=== PATIENT | female | born 1980 | race Caucasian/White ===

== ENCOUNTER → 2024-06-28 | Outpatient (CLI) | payer SELFPAY ==
--- NOTE | 2024-06-28 | IMM_PTH ---
PATIENT: RONNI VALERIO LOC: [facility] U#:[id number] AGE/SX: 43/F ROOM: RE06/28/[address]: Dr. Lexie Evans MD : 1980 BED: DIS: 06/28/2024 SPEC #: [id number] RECD: 07/02/24 10:16 STATUS: BASILIA REQ #: [id number] DEBORAH: 06/28/24 00:[address]: Lexie Evans DEPT: IMMUNOHISTOCHEMISTRY RECD BY: Berto Floyd ENTERED: 07/02/24 10:17 SP TYPE: IMMUNO OTHR DR: Dr. Gm Zimmer, Tissues: A - Left breast, NOS B - Axillary lymph node, NOS Procedures: E-CAD (initial) CALPONIN-1 (add) CK5-6 (add) CK8 (add) E-CAD (add) HER2 JERRY (add) KI-67 (add) MAMM (add) P53 (add) TX (add) Pankeratin (initial) GATA3 (add) P40 (add) ER (initial) PHYSICIAN & [address] [address] SPECIMEN INFORMATION: Tissue Source: A- Left breast mass, B- Left axillary lymph node Clinical Info: Left breast mass Specimen Number: [id number] A, B CPT code: 33798y3,35536j67,21734o4 METHODOLOGY: Deparaffinized sections of prefer/formalin-fixed tissue or PAP/DQ stained slides are incubated with monoclonal/polyclonal antibodies/oligonucleotide probes. Localization is made via biotin free immunoperoxidase method. Appropriate controls are performed and reacted as expected. Results on target cell population are indicated in the following table: RESULTS: ANTIBODY / CLONE RESULT Block A E-Cad (ECH-6) positive CK8 (22rgjnL80) positive, focal Calponin-1 (QS363C) negative CK5-6 (D5 & 1684) positive P40 (BC28) positive P53 (DO-7) negative (null pattern) Ki-67 (30-9) positive, high ~90% AE1-3 (AE1/AE3/PCK26) positive, focal MORPHOMETRIC ANALYSIS ER (clone 6F11) 0% TX (clone 16/1E2) 0% Her-2Neu (clone CB11) 0 The prognostic test for HER2 is performed on formalin-fixed paraffin embedded tissue. A 3+ (positive) staining pattern is defined as intense, homogeneous, complete, circumferential membranous staining in >10% of contiguous tumor cells. A similar weak (2+) staining pattern is interpreted as equivocal. KEENA follow-up testing is recommended for all equivocal cases. Positivity/negativity for ER/TX is reported if > or < 1% of the tumor cells are immuno- reactive, respectively. The ASCO/CAP criteria is used for scoring. Reference: Journal of Clinical Oncology, 2013; 31:3011-3973 & 2010; 16:2324-8599. Ischemic time: Less than one hour. Duration of fixation: __ Hrs; Sample Adequate: Yes. These assays have not been validated on decalcified tissues. Results should be interpreted with caution given the likelihood of false negativity on decalcified specimens or fixation greater than 72 hours. Alternative testing methods (FISH/dualISH for Her2; gene expression for ER) are recommended, if applicable. Please notify the laboratory if additional testing is required. Block B AE1-3 (AE1/AE3/PCK26) positive CK8 (40jufhY26) positive, weak E-Cad (ECH-6) positive Mammaglobin (31A5) negative GATA3 (L50-823) positive CK5-6 (D5 & 1684) positive P40 (BC28) negative These tests were developed and their performance characteristics determined by [facility]. They may not have been cleared or approved by the U.S. Food and Drug Administration. The FDA has determined that such clearance or approval is not necessary. The above immunohistochemical/dualISH markers are ordered and reviewed by the Pathologist. INTERPRETATION: A. 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 Negative for estrogen receptors (unfavorable prognostic indicator). Negative for progesterone receptors (unfavorable prognostic indicator). Negative for overexpression of VKK5chl. B. Left axillary lymph node, biopsy: Metastatic carcinoma consistent with breast primary. SJ.mr 07/03/2024
--- NOTE | 2024-06-28 12:40 | FLU_PTH ---
PATIENT: RONNI VALERIO LOC: [facility] U#:[id number] AGE/SX: 43/F ROOM: RE06/28/[address]: Dr. Lexie Evans MD : 1980 BED: DIS: 06/28/2024 SPEC #: [id number] RECD: 06/28/24 14:03 STATUS: BASILIA REQ #: [id number] DEBORAH: 06/28/24 12:[address]: Lexie Evans DEPT: CYTOLOGY RECD BY: Gloria Luna ENTERED: 06/29/24 09:40 SP TYPE: Fluid OTHR DR: Dr. Gm Zimmer DO Tissues: Left breast, NOS Procedures: Special Stain Group II Surgery Specimen Level IV Cytospin Fluid Comments: @ Originally on account #[id number] Req #[id number] HEADER OPERATION: Left breast mass PRE-OP DIAGNOSIS: Left breast mass TISSUE SUBMITTED: Left breast mass fluid DIAGNOSIS CYTOLOGY Left breast mass fluid (cytospins and cellblock): Rare atypical cells noted. Marked acute inflammation. See comment. 07/02/2024 COMMENT Please also make reference to additional specimen [id number]. CYTOLOGY STUDY Slides are reviewed. CYTOLOGY GROSS Received is 30 ml of red cloudy fluid labeled with the patient's name and and designated per the requisition as Left breast mass. Submitted for cytology preparation including cell block. Mr 06/29/2024 TC:5 CPT: 51521,00606
--- NOTE | 2024-06-28 12:40 | BRBX_PTH ---
PATIENT: RONNI VALERIO LOC: [facility] U#:[id number] AGE/SX: 43/F ROOM: RE06/28/[address]: Dr. Lexie Evans MD : 1980 BED: DIS: 06/28/2024 SPEC #: [id number] RECD: 06/28/24 14:03 STATUS: BASILIA REQ #: [id number] DEBORAH: 06/28/24 12:[address]: Lexie Evans DEPT: SURGICAL PATHOLOGY RECD BY: Gloria Luna ENTERED: 06/29/24 09:39 SP TYPE: BREAST BX OTHR DR: Dr. Gm Zimmer DO Tissues: A - Left breast, NOS B - Lymph node, NOS Procedures: Surgery Specimen Level IV Comments: @ Originally on account #[id number] Req #[id number] HEADER OPERATION: Left breast mass biopsy PRE-OP DIAGNOSIS: Left breast mass TISSUE SUBMITTED: A- Left breast mass, 7-10 o'clock, 2-11cm from nipple, B-Left axillary lymph node Ischemic Time: 1 minute Fixation Time: <48 hours MICROSCOPIC DIAGNOSIS A. Left breast mass, core biopsy: Poorly differentiated invasive carcinoma. See cancer summary in the comment section. B. Left axillary lymph node, core biopsy: Metastatic carcinoma, consistent with breast primary. See comment. 07/02/2024 COMMENT A. 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 Provisional Histologic grade: Glandular/tubule Differentiation Score:3 Nuclear Pleomorphism Score: 3 Mitotic Rate Score: 3 Overall grade: Grade 3 (score of 9) Tumor Size (greatest dimension): 1.0cm in greatest length Ductal Carcinoma In situ: Not identified Angiolymphatic Invasion: Not identified Microcalcifications: Not identified Additional Findings: Focal fat necrosis and associated inflammation Breast Marker Study: [id number] ER: negative (0%). MT: negative (0%). Her2: negative (0). Ki67: positive, high, ~90%. [id number]: not applicable The above summary is in compliance with [employer] [place] [employer] (CAP) Cancer Protocols Checklist and [place] Joint Committee on Cancer (AJCC), Staging Manual, 8th Ed. A. Immunohistochemistry (RF25-11) supports the above diagnosis B. Immunohistochemistry ([id number]) supports the above diagnosis. Metastatic carcinoma measures 0.2 cm in greatest dimension. MICROSCOPIC DESCRIPTION Slides are reviewed. GROSS DESCRIPTION A. Received in fixative is one container labeled with the patient's name and designated Left breast mass. The specimen consists of multiple irregular fragments of olivo-yellow fibroadipose tissue that in aggregate measure 1.5 x 0.5 x 0.1 cm. The specimen is totally submitted in one cassette. B. Received in fixative is one container labeled with the patient's name and designated Left axillary lymph nodes. The specimen consists of multiple fragments of yellow adipose tissue measuring in aggregate 1.5 x 0.5 x 0.1cm. The entire specimen is submitted in one cassette. 06/29/2024 TC:0 CPT:15151r9
== END | disposition home or self-care (01) ==
PROVIDERS: PCP Family Medicine; Referring Provider Surgery; Visit Provider Surgery
DX: C50.912 Malignant neoplasm of unspecified site of left female breast (principal); C77.3 Secondary and unspecified malignant neoplasm of axilla and upper limb lymph nodes
CPT/HCPCS: 88108; 88305; 88313; 88341; 88342

== ENCOUNTER → 2024-07-09 | Outpatient (CLI) | payer SELFPAY ==
--- NOTE | 2024-07-09 14:53 | ECHODONC_ITS ---
Reason For Study: Chemo Procedure This was a 2D Doppler, Color Flow transthoracic echocardiogram. Myocardial strain analysis was performed in this exam to aid in the assessment of cardiac function. Best parasternal images with patient supine. Exam performed in department. Left Ventricle Normal LV size. The global longitudinal strain = -18.5 % (normal). The left ventricular ejection fraction is 60 %. No regional wall motion abnormalities noted. Right Ventricle Normal RV size. Normal systolic function. Atria Normal left atrium. Normal right atrium. Mitral Valve Normal mitral valve. Tricuspid Valve Normal tricuspid valve. Aortic Valve Trisinus/trileaflet aortic valve. Pulmonic Valve Normal pulmonic valve. Great Vessels Normal aortic root. The pulmonary artery is normal size. Normal inferior vena cava. Pericardium/Pleural No pericardial effusion. MMode/2D Measurements & Calculations LVIDd: 4.3 cm IVSd: 0.96 cm Ao root diam: 2.9 cm LVIDs: 2.8 cm LVPWd: 0.95 cm RVDd: 3.1 cm FS: 35.8 % LAV(MOD-bp): 26.7 ml LVAd ap4: 24.1 cm2 SV(MOD-sp4): 38.9 ml LAV(MOD-bp) Indexed: 13.9 ml/m2 LVLd ap4: 7.5 cm SI(MOD-sp4): 20.4 ml/m2 LAV(MOD-sp2): 32.5 ml EDV(MOD-sp4): 65.4 ml LAV(MOD-sp4): 21.5 ml EDV(sp4-el): 66.1 ml LVAs ap4: 14.2 cm2 LVLs ap4: 6.5 cm ESV(MOD-sp4): 26.4 ml ESV(sp4-el): 26.7 ml EF(MOD-sp4): 59.6 % EF(sp4-el): 59.7 % SV(sp4-el): 39.4 ml LA A4 area: 10.8 cm2 LA dimension(2D): 2.7 cm RA A4 area: 10.8 cm2 TAPSE: 1.9 cm Time Measurements MV dec time: 0.27 sec Doppler Measurements & Calculations MV E max chance: 64.9 cm/sec Lat Peak E' Chance: 12.4 cm/sec Med Peak E' Chance: 11.5 cm/sec MV A max chance: 58.7 cm/sec E/E' lat: 5.2 E/E' med: 5.6 MV E/A: 1.1 MV V2 max: 74.6 cm/sec MV P1/2t max chance: 68.5 cm/sec Ao V2 max: 125.8 cm/sec MV max P.2 mmHg MV P1/2t: 80.7 msec Ao max P.3 mmHg MV V2 mean: 47.1 cm/sec Ao V2 mean: 87.8 cm/sec MV mean P.0 mmHg MV dec slope: 248.9 cm/sec2 Ao mean P.5 mmHg MV V2 VTI: 16.3 cm MVA(P1/2t): 2.7 cm2 Ao V2 VTI: 23.7 cm AV (velocity ratio): 0.82 LV V1 max: 100.0 cm/sec PA V2 max: 104.6 cm/sec LV V1 max P.0 mmHg LV V1 mean P.2 mmHg LV V1 mean: 69.3 cm/sec LV V1 VTI: 19.3 cm ECHO/ONC Echo Complete Interpretation Summary Normal LV size. The left ventricular ejection fraction is 60 %. No regional wall motion abnormalities noted. The global longitudinal strain = -18.5 % (normal). The global longitudinal strain is normal. Ordering Physician: Johnny Rice Referring Physician: Lexie Evans Performed By: Francois Dickens RCS
--- NOTE | 2024-07-09 16:01 | MRI_ITS ---
STUDY: BILATERAL BREAST MR WITHOUT AND WITH CONTRAST REASON FOR EXAM: Female, 43 years old. Large breast mass. No prior imaging. TECHNIQUE: Multi-sequence multi-echo imaging of both breasts was performed with a dedicated breast coil. T1-weighted and T2-weighted images were performed before the administration of contrast. T1-weighted images were also performed after the intravenous administration of 17 cc of Clariscan contrast. COMPARISON: None FINDINGS: RIGHT BREAST: Scattered fibroglandular densities with no significant background enhancement. No abnormal enhancing masses or areas of non-mass enhancement in the right breast. LEFT BREAST: Scattered fibroglandular densities with no background enhancement. Large irregular enhancing cavitating mass in the lower inner quadrant of the left breast measuring 7.05 cm x 6.7 cm x 5.3 cm. Large cavitating area within the central portion of the mass. Exophytic portion of the mass extending through the skin inferiorly and medially. No enlarged or abnormal lymph nodes. No abnormality in the visualized regions of the chest or liver. MRI/Breast Bilateral W/O and W IMPRESSION: Large enhancing mass in the medial inferior portion of the left breast with an exophytic component to the mass extending through the skin surface medially and laterally. Findings highly suspicious for carcinoma. Ultrasound-guided biopsy of the solid portions of the mass is recommended for histologic evaluation. CATEGORY: BIRADS Category 5: Highly Suggestive of Malignancy - Appropriate Action Should Be Taken. A letter regarding these results will be sent to the patient by the facility within 30 days. Electronically Signed: Ronald Chavez MD at 20:10 EST ,
== END | disposition home or self-care (01) ==
PROVIDERS: PCP Family Medicine; Referring Provider Surgery; Visit Provider Surgery
DX: Z01.818 Encounter for other preprocedural examination (principal); C50.912 Malignant neoplasm of unspecified site of left female breast
CPT/HCPCS: 77049; 93306; 93356; A9575; A4216; C8908

== ENCOUNTER → 2024-07-12 | Outpatient (CLI) | payer SELFPAY ==
--- NOTE | 2024-07-12 13:24 | MRI_ITS ---
STUDY: MRI BRAIN WITH AND WITHOUT CONTRAST REASON FOR EXAM: Female, 43 years old. STAGING BREAST CA TECHNIQUE: Standardized multiplanar fat and water weighted pulse sequences were obtained. IV 17CC Clariscan was administered for the contrast portion of the examination. COMPARISON: None. FINDINGS: Normal size of the ventricles and extra-axial spaces for the patient''s age. Normal white matter tracts of the supratentorial brain. Normal bilateral basal ganglia. Normal thalami. There is no extra-axial fluid accumulation. Normal flow voids within the major intracranial circulation suggesting patency by spin echo criteria. Normal venous enhancement. There is a dural-based slightly heterogeneously enhancing nodule in the right frontal parietal region without vasogenic edema or mass effect measuring approximately 1.4 x 0.9 x 1.35 cm most likely representing meningioma. Normal sella turcica, pituitary gland, infundibular stalk, optic chiasm and hypothalamus. Normal tectal plate and pineal gland. Normal midbrain, savage and medulla. Normal cerebellum. Normal basal cisterns. Normal bilateral temporal bones. Normal bilateral internal auditory canals. No demonstrated orbital abnormality, within the constraints of a routine brain study. Normal visualized paranasal sinuses. Normal calvarium and skull base. Normal visualized soft tissue structures. Normal visualized upper cervical spine. MRI/Brain W/WO Contrast IMPRESSION: Small dural-based nodule in the right frontal parietal region most likely representing meningioma. However clinical correlation is recommended and follow-up studies. Otherwise normal unenhanced and enhanced MRI of the brain Electronically Signed: Ankush Rosario MD at 16:16 EST ,
== END | disposition home or self-care (01) ==
PROVIDERS: PCP Family Medicine; Referring Provider Surgery; Visit Provider Surgery
DX: C50.912 Malignant neoplasm of unspecified site of left female breast (principal); C77.9 Secondary and unspecified malignant neoplasm of lymph node, unspecified

== ENCOUNTER 2024-07-23 08:46 | Day surgery (SDC) | payer SELFPAY ==
--- NOTE | 2024-07-19 17:43 | PAT.ANE_ITS ---
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 When Was Last Pacemaker Check QUESTION #4 FULL TEXT: You/Your Family Experience fever (hyperthermia) with Anesthesia Last Oral Intake Last Oral intake: Last Oral Intake NPO since Meds taken in AM with sips of water? Meds patient instructed to take am of surgery PONV PONV - workers compensation specialist: PONV - workers compensation specialist Female Yes 07/19/24 10:06 HX of Motion Sickness No 07/19/24 10:06 HX of N/V After Surgery No 07/19/24 10:06 Non-Smoker Yes 07/19/24 10:06 Duration of Surgery greater No 07/19/24 10:06 than 60 minutes Number of Risk Factors 2 07/19/24 10:06 PONV Score Moderate Risk 07/19/24 10:06 Height & Weight Height & Weight: Anesthesia: Height & Weight Height 5 ft 4 in 07/17/24 09:05 Respiratory Assessment Respiratory Assessment - workers compensation specialist: Respiratory Tract Infection Hx - workers compensation specialist Hx Respiratory Tract Infection No 07/19/24 10:06 STOP Sleep Apnea STOP Sleep Apnea - workers compensation specialist: STOP Sleep Apnea - workers compensation specialist Hx Hypertension Yes: ON MEDS 20 YRS AGO 07/19/24 10:06 Hx Sleep Apnea No 07/19/24 10:06 CPAP BIPAP Do you snore loudly (louder No 07/19/24 10:06 than talking or can be heard Do you often feel tired/ Yes 07/19/24 10:06 fatigued/ sleepy during daytime? Has anyone observed you stop No 07/19/24 10:06 breathing during sleep? STOP Results Positive 07/19/24 10:06 QUESTION #5 FULL TEXT : Do you snore loudly (louder than talking or can be heard through closed doors)? 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 Specify any problems Hx of Preganancy in last 3 No 07/19/24 10:06 Months Nurse Filling Out Transfusion DSCHRIBER 07/19/24 10:06 & Questions: Date: 07/19/24 07/19/24 10:06 Time: 10:07 07/19/24 10:06 Patient unable to answer at this time (ie. confused, unrespo /Reproduction History /Reproductive History - workers compensation specialist: /Reproductive Hx- workers compensation specialist Hx Now No 07/19/24 10:06 Gestational Age (in weeks): EDC: Hx Hx Para Hx Section SAB No 07/19/24 10:06 [facility] Medical History (Updated 07/19/24 @ 15:46 by Millie Arteaga RN PROGRESSIVE CARE, RN PROGRESSIVE CARE-C) CINV (chemotherapy-induced nausea and vomiting) Encounter for education Wears glasses Wears dentures Cancer Non-smoker Shortness of breath on exertion History of echocardiogram Hypertension Meningioma Regional lymph node metastasis present Invasive ductal carcinoma of breast delivery delivered Home Medications ?Medication ?Instructions ?Recorded ?Last Taken ?Type lavender oil 1 applic miscellaneous BID-QID PRN 06/28/24 Unknown History skin irritation enchea red 2 oz PO DAILY 07/05/24 Unknown History Iranian knot wheat 1 tsp PO BID 07/17/24 Unknown History cholecalciferol (vitamin D3) 50 50 mcg PO QDAY 07/17/24 Unknown History mcg (2,000 unit) capsule dexamethasone 4 mg tablet 8 mg (2 x 4 mg) PO .COMPLEX #48 07/19/24 Unknown Rx tabs lidocaine-prilocaine 2.5 %-2.5 % 1 applic topical ONCE PRN port 07/19/24 Unknown Rx topical cream access 30 days #30 grams ondansetron 8 mg disintegrating 8 mg PO Q8H PRN nausea and 07/19/24 Unknown Rx tablet vomiting #30 tabs prochlorperazine maleate 10 mg 10 mg PO Q6H PRN nausea and 07/19/24 Unknown Rx tablet vomiting #30 tabs Allergy/AdvReac Type Severity Reaction Status Date / Time No Known Allergies Allergy Verified 07/19/24 14:54 Family History Mother Diabetes Social History Smoking Status: Never smoker alcohol intake: never Audit: Pertinent Findings Pertinent Findings Echo (EF%) pertinent findings: July 09, 2024. Ejection fraction 60%. Normal valves. No aortic stenosis noted. Recommendation Anesthesia Recommendation Anesthesia recommendation: OPTIMIZED for anesthesia
[2024-07-23] VITALS (10 sets, daily range): BP systolic 108–127; BP diastolic 63–93; PULSE 80–99; RESP 16–18; TEMP 2.2–36.9; O2SAT 97–100; BMI 32.6
[2024-07-23 09:11] LABS: Internal QC Validated? YES +Cl - CLEAR BKGD; Pregnancy, Urine Negative Negative
--- NOTE | 2024-07-23 09:11 | PCM.HP.STD ---
[facility] - General General Date of Service: 07/23/24 HPI Narrative RONNI VALERIO, is a 43 F who presents for Port-A-Cath placement. Patient was recently diagnosed with left breast poorly differentiated invasive carcinoma with regional left axillary lymph node involvement. Pathology did show invasive ductal carcinoma with extensive squamous differentiation (metaplastic carcinoma). Patient MRI as well as the PET scan did not show any metastatic disease beyond the lymph nodes. Patient's left breast does continue to drain straw-colored material as the fluid collection did reform. [facility] Medical History CINV (chemotherapy-induced nausea and vomiting) Encounter for education Wears glasses Wears dentures Cancer Non-smoker Shortness of breath on exertion History of echocardiogram Hypertension Meningioma Regional lymph node metastasis present Invasive ductal carcinoma of breast delivery delivered Home Medications ?Medication ?Instructions ?Recorded ?Last Taken ?Type lavender oil 1 applic miscellaneous BID-QID PRN 06/28/24 Unknown History skin irritation enchea red 2 oz PO DAILY 07/05/24 07/22/24 History Jordanian knot wheat 1 tsp PO BID 07/17/24 07/22/24 History cholecalciferol (vitamin D3) 50 50 mcg PO QDAY 07/17/24 07/22/24 History mcg (2,000 unit) capsule dexamethasone 4 mg tablet 8 mg (2 x 4 mg) PO .COMPLEX #48 07/19/24 Unknown Rx tabs lidocaine-prilocaine 2.5 %-2.5 % 1 applic topical ONCE PRN port 07/19/24 Unknown Rx topical cream access 30 days #30 grams ondansetron 8 mg disintegrating 8 mg PO Q8H PRN nausea and 07/19/24 Unknown Rx tablet vomiting #30 tabs prochlorperazine maleate 10 mg 10 mg PO Q6H PRN nausea and 07/19/24 Unknown Rx tablet vomiting #30 tabs Allergy/AdvReac Type Severity Reaction Status Date / Time No Known Allergies Allergy Verified 07/19/24 14:54 Family History Mother Diabetes Social History Smoking Status: Never smoker alcohol intake: never Physical Exam Narrative Palpation of right upper chest/right lower neck normal, left breast mass with drainage?straw-colored from mass Const oriented x3 and no apparent distress Resp normal respiratory effort Cardio regular rate Results Lab / Micro Data Labs: Laboratory Results - last 24 hr 07/23/24 09:00: Urine Test Negative Assessment & Plan Assessment/Plan (1) Encounter for insertion of venous access port: (2) Invasive ductal carcinoma of breast: QUALIFIERS: Laterality: left Qualified Code(s): C50.912 - Malignant neoplasm of unspecified site of left female breast (3) Regional lymph node metastasis present: PLAN: Plan I have discussed above with the patient- Port-a-Cath placement. Right IJ possible left, will also plan for aspiration/I&D of left breast for drainage of fluid-after port placed. Patient has been counseled as to the risks/benefits of the procedure. I have explained the risks of the surgery, including but not limited to: infection, bleeding, injury to any blood vessels/nerves, injury to lungs (such as pneumothorax or hemothorax and need for chest tube), not having any access, nonfunctioning of port due to thrombosis, infection of port, etc. the patient understands and agrees to proceed. I have answered all the patient's questions to the patient?s satisfaction and the patient has no further questions. Lexie Evans M.D. Pager: [phone] [facility] [address] [place] [address], [address] [place] [address] Office: [phone]
--- NOTE | 2024-07-23 10:01 | PRE.ANES_ITS ---
ASA Classification* ASA Classification ASA Classification: 2 Assessment & Plan Anesthesia* Anesthesia Assessment Anesthesia Assessment: Discussed sedation and/or anesthesia options, risks, benefits, and alternatives with patient/parents/legal guardian/POA. Questions invited. The patient/parents/legal guardian/POA seems to understand and agrees to proceed with anesthesia plan. Reviewed the physical assessment, medical history, allergy history and patient home medications list prior to surgery/procedure/anesthetic and documented any changes. Performed airway and anesthesia risk assessments. Anesthesia Type Anesthesia Type: General History Source History Obtained from:: Patient and Chart Anesthesia Focused Assessment* Temperature: 98.3 F Pulse Rate: 96 Blood Pressure: 126/89 Respiratory Rate: 16 Pulse Ox: 100 Oxygen Delivery Method: Room Air Airway Assessment Mouth opens: >3 cm Mallampati Score: I Teeth Condition: Intact Neck Range of motion (ROM): Full ROM Focused Labs Anesthesia Preop lab: CBC WBC 7.7 K/mm3 (4.4-11.0) 07/10/24 13:16 RBC 4.79 M/mm3 (4.2-5.4) 07/10/24 13:16 Hgb 12.7 g/dL (12.0-15.0) 07/10/24 13:16 Hct 39.7 % (37-47) 07/10/24 13:16 Plt Count 317 K/mm3 (150-450) 07/10/24 13:16 CHEMISTRY Potassium 3.9 mmol/L (3.5-5.1) 07/10/24 13:16 Sodium 140 mmol/L (136-145) 07/10/24 13:16 BUN 7 mg/dL (7-18) 07/10/24 13:16 Creatinine 0.64 mg/dL (0.55-1.02) 07/10/24 13:16 Glucose 99 mg/dL (74-106) 07/10/24 13:16 COAG Urine Test Negative Negative 07/23/24 09:00 Pre-Assessment Diagnosis/Proposed Procedure Planned Operative Procedure(s): INSERTION VASCULAR PORT RIGHT POSS LEFT Anesthesia History Anesthesia History - range management specialist: Anesthesia History - range management specialist Hx Hospitalization No 07/19/24 10:06 Any Problems With Anesthesia No 07/19/24 10:06 Cholinesterase deficiency No 07/19/24 10:06 You/Your Family Experience No 07/19/24 10:06 fever (hyperthermia) with Relationship Recent Exposure to Contagious No 07/23/24 09:10 Disease Does patient have nerve No 07/19/24 10:06 stimulator Patient instructed to have device shut off --Does patient have Pacemaker No 07/23/24 09:12 or ICD? When Was Last Pacemaker Check QUESTION #4 FULL TEXT: You/Your Family Experience fever (hyperthermia) with Anesthesia Last Oral Intake Last Oral intake: Last Oral Intake NPO since 00:00 07/23/24 09:12 Meds taken in AM with sips of water? Meds patient instructed to take am of surgery PONV PONV - range management specialist: PONV - range management specialist Female Yes 07/19/24 10:06 HX of Motion Sickness No 07/19/24 10:06 HX of N/V After Surgery No 07/19/24 10:06 Non-Smoker Yes 07/19/24 10:06 Duration of Surgery greater No 07/19/24 10:06 than 60 minutes Number of Risk Factors 2 07/19/24 10:06 PONV Score Moderate Risk 07/19/24 10:06 Height & Weight Height & Weight: Anesthesia: Height & Weight Height 5 ft 2 in 07/23/24 09:12 Weight: 81 kg 07/23/24 09:12 Body Mass Index (BMI) 32.6 07/23/24 09:12 Respiratory Assessment Respiratory Assessment - range management specialist: Respiratory Tract Infection Hx - range management specialist Hx Respiratory Tract Infection No 07/19/24 10:06 STOP Sleep Apnea STOP Sleep Apnea - range management specialist: STOP Sleep Apnea - range management specialist Hx Hypertension Yes: ON MEDS 20 YRS AGO 07/19/24 10:06 Hx Sleep Apnea No 07/19/24 10:06 CPAP BIPAP Do you snore loudly (louder No 07/19/24 10:06 than talking or can be heard Do you often feel tired/ Yes 07/19/24 10:06 fatigued/ sleepy during daytime? Has anyone observed you stop No 07/19/24 10:06 breathing during sleep? STOP Results Positive 07/19/24 10:06 QUESTION #5 FULL TEXT : Do you snore loudly (louder than talking or can be heard through closed doors)? 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 Specify any problems Hx of Preganancy in last 3 No 07/19/24 10:06 Months Nurse Filling Out Transfusion DSCHRIBER 07/19/24 10:06 & Questions: Date: 07/19/24 07/19/24 10:06 Time: 10:07 07/19/24 10:06 Patient unable to answer at this time (ie. confused, unrespo /Reproduction History /Reproductive History - range management specialist: /Reproductive Hx- range management specialist Hx Now No 07/19/24 10:06 Gestational Age (in weeks): EDC: Hx Hx Para Hx Section SAB No 07/19/24 10:06 Active Medications Active Medications: Current Medications Generic Name Dose Route Start Last Admin Trade Name Freq PRN Reason Stop Dose Admin Cefazolin Sodium 2 gm/ N/A 20 mls @ 400 mls/hr 07/23/24 11:00 IV 07/23/24 11:02 PREOP ONE Sodium Chloride 1,000 mls @ 15 mls/hr 07/23/24 08:55 IV 07/28/24 22:14 .[facility] Protocol PFSH Medical History CINV (chemotherapy-induced nausea and vomiting) Encounter for education Wears glasses Wears dentures Cancer Non-smoker Shortness of breath on exertion History of echocardiogram Hypertension Meningioma Regional lymph node metastasis present Invasive ductal carcinoma of breast delivery delivered Home Medications ?Medication ?Instructions ?Recorded ?Last Taken ?Type lavender oil 1 applic miscellaneous BID-QID PRN 06/28/24 Unknown History skin irritation enchea red 2 oz PO DAILY 07/05/24 07/22/24 History Kiswahili knot wheat 1 tsp PO BID 07/17/24 07/22/24 History cholecalciferol (vitamin D3) 50 50 mcg PO QDAY 07/17/24 07/22/24 History mcg (2,000 unit) capsule dexamethasone 4 mg tablet 8 mg (2 x 4 mg) PO .COMPLEX #48 07/19/24 Unknown Rx tabs lidocaine-prilocaine 2.5 %-2.5 % 1 applic topical ONCE PRN port 07/19/24 Unknown Rx topical cream access 30 days #30 grams ondansetron 8 mg disintegrating 8 mg PO Q8H PRN nausea and 07/19/24 Unknown Rx tablet vomiting #30 tabs prochlorperazine maleate 10 mg 10 mg PO Q6H PRN nausea and 07/19/24 Unknown Rx tablet vomiting #30 tabs Allergy/AdvReac Type Severity Reaction Status Date / Time No Known Allergies Allergy Verified 07/19/24 14:54 Family History Mother Diabetes Social History Smoking Status: Never smoker alcohol intake: never Review of Systems (Anesthesia) ROS Narrative System reviewed and no additional complaints, except as documented.
[2024-07-23] MEDS: Cefazolin 2 GM in Syringe IV (10:25)
[2024-07-23] MEDS: Bupivacaine Mpf 0.5% 30 ML VIAL (10:42)
[2024-07-23] MEDS: Lidocaine 1% /Epi 1:100 (20ml) 20 ML Vial (10:42)
--- NOTE | 2024-07-23 11:14 | PCM.OPRPT ---
Operative Report (Standard) Operative Information Date of Procedure: 07/23/24 Pre-Operative Diagnosis: Z45.2, left breast cancer, aspiration/incision of left breast cancer seroma Post-Operative Diagnosis: Same Surgery/Procedure Performed: Placement of right IJ Port-A-Cath Use of ultrasound Use of fluoroscopy Aspiration/incision drainage of left breast cancer seroma bottom stop attacher: No Type of Anesthesia: General/Supplemental RN Documented Start/Stop Times: Operation Date: 07/23/24 10:30 Case Time Into Pre-Op 07/23/24 08:52 Out of Pre-Op 07/23/24 10:16 Anesthesia Start 07/23/24 10:20 Into Room 07/23/24 10:20 Procedure Start 07/23/24 10:42 Procedure End 07/23/24 11:16 Anesthesia End 07/23/24 11:19 Out of Room 07/23/24 11:19 Into Recovery 07/23/24 11:21 Out of Recovery 07/23/24 11:51 Into Phase II Recovery 07/23/24 11:53 Out of Phase II 07/23/24 12:38 Procedure Start Time: 10:42 Procedure Stop Time: 11:16 Select all DRAINS/GRAFTS/IMPLANTS that apply: Prosthetic device Prosthetic device details: Bard PowerPort isp M.R.I. 6Fr Lot [id number] breast [id number] Special Medications: Ancef 2 g IV x 1 Estimated Blood Loss: < 10 cc Specimen collected: No Description of surgery: After informed consent was given, the patient was brought to the operating room and placed in the supine position. Appropriate time out protocol was followed. Patient was then given IV conscious sedation for anesthesia. The patient's right upper chest and neck were then prepped with a surgical skin preparation and sterile surgical drapes were placed. After proper landmarks were ascertained, the skin at the upper right chest area was then infiltrated with 1:1 mixture of 1% lidocaine with epinephrine and 0.5% marcaine. A needle trocar was then inserted into the right internal jugular vein with ultrasound guidance-multiple vessels were viewed with u/s and the right IJ was chosen-- and there was good aspiration of venous blood. A wire was then threaded into the needle trocar and this was visualized under fluoroscopy to ensure that the wire was in the superior vena cava. Once this was done, then the needle trocar was removed. A small skin neelam was made with an 11 blade knife at the wire entrance site. The dilator with the introducer sheath attached was then placed over the wire into the right internal jugular vein via the Seldinger technique and this was visualized under fluoroscopy. The dilator and sheath were in proper position as visualized by fluoroscopy. A subcutaneous pocket was then created caudad to the catheter insertion site. A transverse skin incision was made after the skin and subcutaneous tissues were infiltrated with local anesthetic. Blunt dissection was then used to create a space large enough for placement of the subcutaneous port. The catheter was then tunneled into the subcutaneous pocket. The wire and dilator were then removed. The catheter was then threaded into the introducer sheath and was positioned with its tip at the junction of the superior vena cava and the right atrium as visualized under fluoroscopy. The excess catheter was transected. The catheter was then attached to the subcutaneous port using manufacturers guidelines. The catheter was flushed with a heparin saline mixture prior to placement. Hemostasis was carefully controlled with electrocautery. The port was sutured to the subcutaneous fascia using 2-0 Vicryl suture at two sites. The port was then placed in the subcutaneous pocket. The incision were reapproximated with interrupted subdermal 3-0 vicryl sutures. The skin was reapproximated with 3-0 nylon suture in a interrupted fashion. Steristrips were used for reinforcement of the skin closure at IJ insertion site and a sterile opsite dressings were applied. The patient tolerated the procedure well. Patient's left breast was prepped overlying the area of strawlike color leakage due to the seroma from the cancer with Betadine. 18-gauge needle was attempted to aspirate however did not aspirate fluid well thus pressure was used to drain the seroma initially straw-colored and then turned bloody. 4 x 4 gauze and tape were placed. Surgical Findings: See operative report Complications Complications: No
--- NOTE | 2024-07-23 11:19 | EX.PCM.DISCH ---
Discharge Instructions Procedure Port-A-Cath Diet Discharge Diet: Light diet - advance as tolerated Activity May shower in (days): 5 (Keep port site clean and dry x5 days. Neck incision okay to get wet after 1 day. Okay to lower shower and upper sponge bath. OR okay to taper off port site with a Ziploc bag to shower) Lifting Restrictions: No lifting > 15 pounds for 3 days with the arm on the side of the port Dressing / Incision Call your doctor if your incision/area has: Continuous Slow Oozing, Sudden Increased Bleeding, Increased Pain/ Swelling, Increased Redness, Foul Smelling Discharge and Swelling at the incision site Call your doctor if you observe: Fever of 101 or Higher Change Dressing in: 2 days (2-3 days- port site; ok to remove neck opsite in 1 day) Additional Dressing/Incision Instructions:: Change left breast dressing as needed. Follow Up Care Please Follow Up With: Lexie Evans MD When: In 10 days for permanent suture removal?call office for appointment Test Results: Test results from this visit will be discussed in further detail at your follow-up appointment, if applicable. Discharge Plan Admission Attending Provider: Lexie Evans Primary Care Provider: Gm Zimmer Instructions Print Language: Tristanian Discharge Orders/Prescriptions Prescriptions: New tramadol 50 mg tablet 50 mg PO Q6H PRN (Reason: pain) 3 Days Qty: 5 0RF Continued lavender oil Oil 1 applic miscellaneous BID-QID PRN (Reason: skin irritation) enchea red 2 oz PO DAILY cholecalciferol (vitamin D3) 50 mcg (2,000 unit) capsule 50 mcg PO QDAY [place] knot wheat 1 tsp PO BID lidocaine-prilocaine 2.5-2.5 % cream 1 applic topical ONCE PRN (Reason: port access) 30 Days Qty: 30 2RF ondansetron 8 mg tablet,disintegrating 8 mg PO Q8H PRN (Reason: nausea and vomiting) Qty: 30 2RF prochlorperazine maleate 10 mg tablet 10 mg PO Q6H PRN (Reason: nausea and vomiting) Qty: 30 2RF dexamethasone 4 mg tablet 8 mg PO .COMPLEX Qty: 48 0RF Rx Instructions: 8 mg orally; On days 2-4 of chemotherapy cycle only Referrals / Follow Up: Gm Zimmer, DO [Primary Care Provider] - Disposition Disposition (needs filled in before D/C Order can be placed): Home, Self Care
--- NOTE | 2024-07-23 11:24 | PCM.POST.ANE ---
Anesthesia: Postop Eval I Current Vital Signs Temperature: 36 F Pulse Rate: 80 Blood Pressure: 108/70 Respiratory Rate: 18 Pulse Ox: 97 Oxygen Delivery Method: Room Air Assessment Airway patent: Yes Spontaneous unlabored respirations: Yes Mental status: Awake nausea: No Vomiting: No Anesthesia Complication: No Fluid Hydration Crystalloid volume administer (ml): 350 Total IV fluid infused: 350 Progress Note Anesthesia document: Postop Eval 1 completed: Yes
--- NOTE | 2024-07-23 11:30 | RAD_ITS ---
STUDY: X-RAY CHEST REASON FOR EXAM: Female, 43 years old. Port -- PORTABLE PACU TECHNIQUE: Single AP portable view of the chest. COMPARISON: None. FINDINGS: The tip of the right-sided Port-A-Cath is at the junction of the superior vena cava and right atrium. EKG electrodes are seen. The lungs are clear and expanded. There is no demonstrated pleural abnormality. Normal size heart. Normal mediastinum and keara. Normal visualized pulmonary arteries. Normal visualized aortic arch and descending thoracic aorta. Normal visualized thoracic spine. Normal visualized ribs, clavicles, and shoulders. There is no demonstrated abnormality of the visualized soft tissue structures of the upper abdomen. RAD/Chest 1 View (Portable) IMPRESSION: The tip of the right magdalena catheter is at the junction of the superior vena cava and right atrium. Electronically Signed: Brayan Macias MD at 12:12 EST ,
--- NOTE | 2024-07-23 11:50 | POSTOPAN2_ITS ---
Anesthesia Postop Eval I Sum Postop Eval Completion status Anesthesia document: Postop Eval 1 completed: Yes Anesthesia Postop Eval I Summary Anesthesia Postop Eval I Summary: Anesthesia Postop Eval I: Assessment Summary Airway patent Yes 07/23/24 11:24 ADVERTISING MANAGER.[email or web address] Spontaneous unlabored Yes 07/23/24 11:24 ADVERTISING MANAGER.BRENDA respirations Mental status Awake 07/23/24 11:24 ADVERTISING MANAGER.[email or web address] nausea No 07/23/24 11:24 ADVERTISING MANAGER.ILDALI Vomiting No 07/23/24 11:24 ADVERTISING MANAGER.BRENDA Anesthesia Postop Eval I: Fluid Summary Crystalloid volume administer 350 07/23/24 11:24 ADVERTISING MANAGER.JCLI (ml) Colloids volume administered ( ml) Blood Product volume administered (ml) Total IV fluid infused 350 07/23/24 11:24 ADVERTISING MANAGER.BRENDA Anesthesia Postop Eval I: Summary Notes Anesthesia Complication No 07/23/24 11:24 ADVERTISING MANAGER.BRENDA Anesthesia Complication Comment: Post-operative progress note Anesthesia: Postop Eval II Evaluation Mental status: Awake Pain Level: 0 nausea: No Vomiting: No Complications Anesthesia Complication: No
--- NOTE | 2024-07-23 11:50 | PCM.POSTANE2 ---
Anesthesia Postop Eval I Sum Postop Eval Completion status Anesthesia document: Postop Eval 1 completed: Yes Anesthesia Postop Eval I Summary Anesthesia Postop Eval I Summary: Anesthesia Postop Eval I: Assessment Summary Airway patent Yes 07/23/24 11:24 CONCRETE HOPPER OPERATOR.[email or web address] Spontaneous unlabored Yes 07/23/24 11:24 CONCRETE HOPPER OPERATOR.[email or web address] respirations Mental status Awake 07/23/24 11:24 CONCRETE HOPPER OPERATOR.[email or web address] nausea No 07/23/24 11:24 CONCRETE HOPPER OPERATOR.ILDALI Vomiting No 07/23/24 11:24 CONCRETE HOPPER OPERATOR.BRENDA Anesthesia Postop Eval I: Fluid Summary Crystalloid volume administer 350 07/23/24 11:24 CONCRETE HOPPER OPERATOR.JCLI (ml) Colloids volume administered ( ml) Blood Product volume administered (ml) Total IV fluid infused 350 07/23/24 11:24 CONCRETE HOPPER OPERATOR.BRENDA Anesthesia Postop Eval I: Summary Notes Anesthesia Complication No 07/23/24 11:24 CONCRETE HOPPER OPERATOR.BRENDA Anesthesia Complication Comment: Post-operative progress note Anesthesia: Postop Eval II Evaluation Mental status: Awake Pain Level: 0 nausea: No Vomiting: No Complications Anesthesia Complication: No
== END 2024-07-23 12:38 | disposition home or self-care (01) ==
LOC: SDC 08:49 → AC 08:49
PROVIDERS: Anesthesiology; PCP Family Medicine; Referring Provider Family Medicine; Visit Provider Surgery
PROC: (CPT 36561; principal; 2024-07-23 10:15)
DX: Z45.2 Encounter for adjustment and management of vascular access device (principal); C77.3 Secondary and unspecified malignant neoplasm of axilla and upper limb lymph nodes; C50.912 Malignant neoplasm of unspecified site of left female breast; L76.34 Postprocedural seroma of skin and subcutaneous tissue following other procedure; I10 Essential (primary) hypertension; Z79.899 Other long term (current) drug therapy
CPT/HCPCS: 36561; 10140; 00532; 71045; 77001; 81025; A4216